=== PATIENT | female | born 1980 | race Caucasian/White ===

== ENCOUNTER 2017-11-08 09:54 | Emergency (ER) | payer OTHER ==
[~2017-11-08] VITALS: Ht 170.2 cm; Wt 136.1 kg
[2017-11-08 10:20] LABS: ABSOLUTE NEUTROPHILS 4.6 thou/uL (1.4-8.2); BASOPHILS 0.7 % (0.0-2.0); HEMATOCRIT 42.1 % (37.0-47.0); HEMOGLOBIN 14.1 gm/dL (12.0-15.0); LYMPHOCYTES 32.9 % (24.0-44.0); MCH 26.3 pg (26.0-34.0); MCHC 33.4 g/dL (28.0-37.0); MCV 78.7 fL (80.0-100.0); MONOCYTES 7.9 % (1.0-8.0); PLATELET COUNT 266 thou/uL (150-400); POLYS 57.5 % (36.0-66.0); RBC 5.35 mil/uL (4.20-5.00); RDW 14.6 % (10.5-14.5)
[2017-11-08 10:23] LABS: ANION GAP 9 mmol/L (7-16); BUN 13 mg/dL (7-18); CALCIUM 8.6 mg/dL (8.5-10.1); CHLORIDE 105 mmol/L (98-107); CO2 25 mmol/L (21-32); CREATININE 0.9 mg/dL (0.6-1.0); GLUCOSE 143 mg/dL (74-106); POTASSIUM 3.9 mmol/L (3.5-5.1); SODIUM 139 mmol/L (136-145)
[2017-11-08 10:29] LABS: ALBUMIN 3.5 g/dL (3.4-5.0); DIRECT BILIRUBIN < 0.1 mg/dL (<0.1-0.3); LIPASE 103 U/L (73-393); SGOT 22 U/L (15-37); SGPT 35 U/L (30-65); TOTAL BILIRUBIN 0.3 mg/dL (<0.1-1.0); TOTAL PROTEIN 7.1 g/dL (6.4-8.2)
[2017-11-08 10:55] LABS: URINE BILIRUBIN NEGATIVE (Negative); URINE BLOOD 3+ (Negative); URINE CLARITY CLOUDY; URINE COLOR YELLOW; URINE GLUCOSE-RANDOM* NEGATIVE (Negative); URINE KETONES NEGATIVE (Negative); URINE NITRITE-REFLEX NEGATIVE (Negative); URINE PROTEIN (DIPSTICK) NEGATIVE (Negative); URINE UROBILINOGEN 0.2 E.U./dl (0.2-1.0)
[2017-11-08 10:56] LABS: URINE LEUKOCYTES-REFLEX TRACE (Negative)
[2017-11-08 11:04] LABS: CASTS None Seen /LPF (None Seen); CRYSTALS None Seen /LPF (None Seen); SQUAMOUS 0-3 Few /LPF (0-3); URINE RBC >20 Many /HPF (0-2); URINE WBC-REFLEX 6-15 Few /HPF (0-5)
[2017-11-08] MEDS ORDERED: TORADOL 10 MG T10 MG PO (14:10)
[2017-11-08] MEDS ORDERED: ULTRAM 50MG TAB50 MG PO (14:10)
[2017-11-08] MEDS ORDERED: KEFLEX500 M1 PO (14:10)
[2017-11-08] MEDS ORDERED: ZOFRAN ODT4 MG PO (14:10)
[2017-11-08 14:41] VITALS: BP 135/90
== END 2017-11-08 14:43 | disposition home or self-care (01) ==
LOC: ER 09:54
PROVIDERS: Emergency Medicine
DX: N20.0 Calculus of kidney (principal); Z88.2 Allergy status to sulfonamides; Z88.8 Allergy status to other drugs, medicaments and biological substances

== ENCOUNTER → 2018-12-30 | Outpatient (CLI) | payer OTHER ==
[~2018-12-30] MED LIST: KEFLEX500 M1 PO; TORADOL 10 MG T10 MG PO; ULTRAM 50MG TAB50 MG PO; ZOFRAN ODT4 MG PO
== END ==
LOC: CAT 10:20
DX: K80.20 Calculus of gallbladder without cholecystitis without obstruction (principal); K76.0 Fatty (change of) liver, not elsewhere classified

== ENCOUNTER → 2020-04-24 | Outpatient (CLI) | payer OTHER ==
[2020-04-24 11:18] LABS: ABSOLUTE NEUTROPHILS 5.2 thou/uL (1.4-8.2); BASOPHILS 0.5 % (0.0-2.0); EOSINOPHILS 1.1 % (0.0-3.0); HEMATOCRIT 39.6 % (37.0-47.0); HEMOGLOBIN 13.3 gm/dL (12.0-15.0); LYMPHOCYTES 17.5 % (24.0-44.0); MCH 26.2 pg (26.0-34.0); MCHC 33.7 g/dL (28.0-37.0); MCV 77.8 fL (80.0-100.0); MONOCYTES 6.1 % (1.0-8.0); PLATELET COUNT 296 thou/uL (150-400); POLYS 74.8 % (36.0-66.0); RBC 5.09 mil/uL (4.20-5.00); RDW 15.2 % (10.5-14.5); WBC 6.9 thou/uL (4.0-11.0)
[2020-04-24 11:20] LABS: URINE BILIRUBIN NEGATIVE (Negative); URINE BLOOD 3+ (Negative); URINE CLARITY CLEAR; URINE COLOR YELLOW; URINE GLUCOSE-RANDOM* NEGATIVE (Negative); URINE KETONES NEGATIVE (Negative); URINE LEUKOCYTES NEGATIVE (Negative); URINE NITRITE NEGATIVE (Negative); URINE PROTEIN (DIPSTICK) NEGATIVE (Negative); URINE SPECIFIC GRAVITY >= 1.030 (1.005-1.035); URINE UROBILINOGEN 0.2 E.U./dl (0.2-1.0)
[2020-04-24 11:34] LABS: ALBUMIN 3.5 g/dL (3.4-5.0); ANION GAP 8 mmol/L (7-16); BUN 11 mg/dL (7-18); CALCIUM 8.5 mg/dL (8.5-10.1); CHLORIDE 101 mmol/L (98-107); CHOLESTEROL 124 mg/dL (<200); CO2 26 mmol/L (21-32); CREATININE 0.8 mg/dL (0.6-1.0); GLUCOSE 105 mg/dL (74-106); HDL CHOLESTEROL 49 mg/dL (>40); LDL CHOLESTEROL 59 mg/dL (<100); POTASSIUM 3.9 mmol/L (3.5-5.1); SGOT 12 U/L (15-37); SGPT 22 U/L (30-65); SODIUM 135 mmol/L (136-145); TC:HDL 2.5 Ratio (Not establshd); TOTAL BILIRUBIN 0.4 mg/dL (0.2-1.0); TRIGLYCERIDE 83 mg/dL (<150); VLDL 17 mg/dL (<40)
[2020-04-24 12:09] LABS: BACTERIA 1-9 Few /HPF (None Seen); CASTS None Seen /LPF (None Seen); CRYSTALS None Seen /LPF (None Seen); SQUAMOUS 0-3 Few /LPF (0-3); URINE WBC None Seen /HPF (0-5)
== END ==
LOC: LAB 10:25
PROVIDERS: ATTEND Nurse Practitioner
DX: N60.01 Solitary cyst of right breast (principal); Z00.00 Encounter for general adult medical examination without abnormal findings; N63.10 Unspecified lump in the right breast, unspecified quadrant

== ENCOUNTER → 2020-09-06 | Outpatient (CLI) | payer OTHER | LOC: MRI 09-05 11:57 | PROVIDERS: ATTEND Family Medicine | DX: M51.27 Other intervertebral disc displacement, lumbosacral region (principal); M54.30 Sciatica, unspecified side ==

== ENCOUNTER → 2020-10-09 | Outpatient (CLI) | payer OTHER ==
[~2020-10-09] VITALS: Ht 320 cm; Wt 114.8 kg
[~2020-10-09] MED LIST changes: +NEURONTIN300 MG PO; +PHENTERMINE H37.5 MG PO
[2020-10-09 14:43] VITALS: BP 124/80
--- NOTE | 2020-10-09 15:05 | NUR ---
Pain Clinic Assessment: 1. History of Osteoarthritis: Not Applicable History of Rheumatoid Arthritis: 2. Height: 5 ft. 66 in. 320.0 cm. Weight: 253.0 lb. oz. 114.760 kg. Patient's BMI: 11.2 3. Vital Signs: BP: 124/80 Pulse: 82 Resp: 16 Temp: 02 Sat: 100 ECG Mon: 4. Pain Intensity: 6 5. Fall Risk: Dizziness: Y Needs help standing or walking: N Fallen in the last 3 months: N Fall risk comments: 6. Patient on Blood Thinner: 7. History of Hypertension: N 8. Opioid Therapy greater than 6 weeks: N Opiate Contract Signed: 9. Risk Assessment Tool Provided: 10. Functional Assessment Tool: 2 11. Recreational Drug Use: Never Drug Type: Tobacco Use: Never Smoker Tobacco Type: Amount or Packs/day: How Many Years: Alcohol Use: No Frequency: Quant:
--- NOTE | 2020-10-10 12:59 | HPC ---
[facility] [place] [address] PAIN MANAGEMENT CONSULTATION Name: ZANDER VEGA Room #: REG [facility] Mart.#: [id number] Admission: 10/09/20 Attend Phys: James Denise DO Discharge: Date of : 82 Report #: [id number] THIS REPORT FOR: cc: James Kearney James A. DO Johnson, James E. DO ~ DATE OF SERVICE: 10/09/2020 REFERRING PHYSICIAN: Dr. James Kearney CHIEF COMPLAINT: Low back pain, right lower extremity pain with paresthesias. HISTORY OF PRESENT ILLNESS: As you know, the patient is a 40-year-old female who reports acute onset of low back pain, right lower extremity pain that began on 08/24/2020. The patient states symptoms began with no noted injury or trauma. She has trialed vawf-hks-hidgesc treatment including nonsteroidal anti-inflammatories along with rest and relaxation. She has had a history of chronic back pain in the past with intermittent episodes, but nothing that lasted as long as this condition. She sought further evaluation through her primary care physician. They trialed conservative treatment with medication management, but symptoms did not improve. She was subsequently then referred to undergo MRI of the lumbar spine due to ongoing pain and radiation down the right leg. It was found the patient had changes at the L5-S1 level with nerve root impingement of the S1 and the patient was subsequently referred to our clinic to discuss interventional treatments. The patient indicates today pain is continuous, steady and constant, describes the pain as burning, shooting, cramping, pulling and throbbing along with intermittent numbness and tingling. She places current pain score 4/10, daily average at 7/10, worst pain has been is 10/10. The patient states that lying down and sitting exacerbate symptoms standing. Pain medications and stretching tends to improve pain. She has been referred to our service to discuss treatment options for suspected lumbar radiculopathy. PAST MEDICAL HISTORY: 1. Exogenous obesity. 2. Juvenile rheumatoid arthritis. PAST SURGICAL HISTORY: 1. section x 2. 2. Tubal ligation. 3. Tubal reanastomosis. SOCIAL HISTORY: The patient denies tobacco, alcohol, IV or illicit drug use. She has been out of work force for about 2 months due to ongoing pain issues, unresolved with conservative treatment. She typically works at [employer] in the [facility] [address] [place] [address] PAIN MANAGEMENT CONSULTATION Name: ZANDER VEGA Room #: REG [facility] [id number] Admission: 10/09/20 Attend Phys: James Denise DO Discharge: Date of : 82 Report #: [id number] shipping area. She is not receiving workmen's compensation nor is she trying to obtain discrete benefits. She is not in litigation in regards to pain. She is unaccompanied at today's visit. REVIEW OF SYSTEMS: Positive for weight gain, decrease in appetite, fatigue and weakness, nocturia, numbness and tingling sensations involving the right lower extremity, insomnia, morbid obesity. All other review of systems negative per 12-point review of systems other than those listed in history of present illness. Pain impact score 51/70 indicating severe interference of daily activities secondary to pain. ALLERGIES: SULFA, MORPHINE, NUBAIN. CURRENT MEDICATIONS: Phentermine 37 mg once a day. IMAGING: MRI lumbar spine obtained on 09/06/2020 shows L1-L2, L2-L3, L3-L4, and L4-L5 essentially unremarkable. There is no neural foraminal stenosis, no central canal stenosis. L5-S1, mild generalized disk bulge with superimposed right paracentral disk protrusion abutting the right S1 nerve root within the central canal contributing to mild right sided central canal stenosis. There is mild facet arthropathy on the right, negative left. No significant neural foraminal stenosis. PHYSICAL EXAMINATION: VITAL SIGNS: Blood pressure 124/80, pulse 82, respiratory rate 16 and unlabored. The patient is 100% on room air. Height 5 feet 6 inches tall, weight 253 pounds, BMI calculated 42.7. GENERAL: Well-developed, well-nourished, well-hydrated, class III, morbidly obese 40-year-old female appearing her stated age, placing current pain score 6/10. HEENT: Normocephalic, atraumatic. Pupils equal, round and reactive to light. Extraocular muscles are intact. Sclerae nonicteric without injection. NEUROLOGIC: Speech is fluent. The patient is wearing a mask in compliance with COVID-19 regulations. LUNGS: Clear, no wheeze, rhonchi or rales. CARDIOVASCULAR: Regular. No appreciable gallop, no rub. ABDOMEN: Soft, obese, normal active bowel sounds spells. EXTREMITIES: Show no clubbing, no cyanosis. No appreciable edema. MUSCULOSKELETAL: Lower extremity strength is equal and symmetrical 5/5. Slight giveaway strength noted with hip flexion, knee extension on the right when compared to left due to pain. Seated straight leg raising positive right. Supine straight leg raising positive right. Ladi's test is negative. Modified Gaenslen's positive for axial low back pain. Ankle clonus negative. Babinski is negative. Gait is mildly antalgic favoring right lower extremity over left. [address] [address] PAIN MANAGEMENT CONSULTATION Name: ZANDER VEGA Room #: REG [facility]#: [id number] Admission: 10/09/20 Attend Phys: James Denise DO Discharge: Date of : 82 Report #: [id number] Deep tendon reflexes equal and symmetrical by patellar and Achilles. ASSESSMENT: 1. Symptomatic lumbar radiculopathy. 2. Displacement of lumbar intervertebral disk with radiculopathy. 3. Mild facet arthropathy of the lumbar spine. PLAN: 1. Based on today's physical exam and history the patient has provided, the description the patient uses in regards to pain as well as location of symptoms and descriptors the likely source of the patient's pain is a lumbar radiculopathy. The patient and I discussed at length today the findings of her MRI and how that correlates to her current symptoms. It would appear her symptoms are related to the S1 nerve root abutment on the right due to the paracentral disk protrusion at L5-S1. After discussing the findings of her MRI and how they correlate to her current symptoms, we then discussed the treatment options we have available. Following was discussed with the patient today. We have discussed with the patient that physical therapy, stretching exercises, core strengthening and a concerted effort at weight loss would be an excellent conservative treatment approach to addressing her ongoing pain. We discussed suggestions in medication management with neuropathic pain medications along consistent nonsteroidal anti-inflammatory. We also discussed with the patient epidural injections under fluoroscopic guidance for which the patient was referred to our clinic. We also discussed surgical options with the patient, though given the findings on the MRI, I do not feel the patient at this point would be requiring such a degree that aggressive treatment. After reviewing the risks and benefits of all proposed treatment options, the patient chose to move forward with a lumbar epidural injection under fluoroscopic guidance. 2. The patient was advised due to third democrat payer restrictions, authorization would have to be obtained before the patient could undergo a lumbar epidural injection. Authorization could take anywhere from 4-7 working days. We will begin this process immediately, contact the patient once this authorization has been completed. having her return to undergo the first in a series of lumbar epidural injections. 3. The patient will be started on gabapentin for neuropathic pain control. We will start her at 300 mg p.o. at bedtime for 3 nights and if no improvement in symptoms, no side effects, then increase to 600 mg p.o. at bedtime for 3 nights again if no improvement in symptoms, no side effects of sleepiness, disorientation, confusion, mental slowing or dysphoric effects, then increase to 900 mg p.o. at bedtime. Gait, the patient is continuing to experience pain then begin escalating doses in the morning, starting with 1 tab p.o. at bedtime, continuing every 3 days to escalate to 900 b.i.d. The patient was given a prescription of the gabapentin #120 tablets to begin the titration. We will discuss efficacy at followup visit. 4. We will see the patient back in followup visit once we have achieved [address] [address] PAIN MANAGEMENT CONSULTATION Name: ZANDER VEGA Room #: EMILY Collado#: [id number] Admission: 10/09/20 Attend Phys: James Denise DO Discharge: Date of : 82 Report #: [id number] authorization for the patient to undergo a lumbar epidural injection under fluoroscopic guidance. We are hopeful we can obtain this authorization quickly having the patient. The patient returned to undergo the injection and return to her work activities. 5. The patient has requested whether or not limitations at work would be necessary. I have advised the patient to follow up with her PCP in regards to this issue. I do feel that limitations of lifting with forward flexion would be appropriate given the findings of her MRI. The lifting restrictions should be no greater than 25 pounds though a heavy weight can be done if appropriate teaching has been given to the patient in regards to appropriate lifting and lumbar stabilization belt is provided. She can follow through with her human resources individual at her place appointment to receive this education and bracing. We wish to thank Dr. Kearney for the opportunity to see the patient in consultation. We will keep you apprised of response to treatment as we address lumbar radiculopathy. Again, we wish to thank you for the opportunity to see the patient in consultation. <ELECTRONICALLY SIGNED> By: James Denise DO 10/10/20 1259 [id number] 1149 James Denise DO /nt
== END ==
LOC: PAIN 10-02 06:55
PROVIDERS: ATTEND Anesthesiology Pain Medicine
DX: M51.36 Other intervertebral disc degeneration, lumbar region (principal); M79.604 Pain in right leg; R20.2 Paresthesia of skin

== ENCOUNTER → 2020-10-19 | Outpatient (CLI) | payer OTHER ==
[~2020-10-19] MED LIST changes: +CIPRO500 M1 PO; +FLAGYL500 M1 PO
== END ==
LOC: LAB 11:25
PROVIDERS: ATTEND Family Medicine
DX: R50.9 Fever, unspecified (principal); R05 Cough; R51.9 Headache, unspecified; R19.7 Diarrhea, unspecified; Z20.822 Contact with and (suspected) exposure to COVID-19

== ENCOUNTER 2020-10-22 12:43 | Emergency (ER) | payer OTHER ==
[~2020-10-22] VITALS: Ht 167.6 cm; Wt 64.0 kg
[~2020-10-22 12:43] MED LIST changes: -CIPRO500 M1 PO; -FLAGYL500 M1 PO
[2020-10-22 15:13] LABS: URINE BLOOD 2+ (Negative); URINE CLARITY CLEAR; URINE COLOR YELLOW; URINE GLUCOSE-RANDOM* NEGATIVE (Negative); URINE KETONES 1+ (Negative); URINE NITRITE-REFLEX NEGATIVE (Negative); URINE PROTEIN (DIPSTICK) NEGATIVE (Negative); URINE SPECIFIC GRAVITY 1.025 (1.005-1.035); URINE UROBILINOGEN 0.2 E.U./dl (0.2-1.0)
[2020-10-22 15:15] LABS: ABSOLUTE NEUTROPHILS 5.5 thou/uL (1.4-8.2); BASOPHILS 0.3 % (0.0-2.0); EOSINOPHILS 0.7 % (0.0-3.0); HEMATOCRIT 39.5 % (37.0-47.0); HEMOGLOBIN 13.2 gm/dL (12.0-15.0); LYMPHOCYTES 14.6 % (24.0-44.0); MCH 25.4 pg (26.0-34.0); MCHC 33.4 g/dL (28.0-37.0); MCV 76.1 fL (80.0-100.0); PLATELET COUNT 281 thou/uL (150-400); POLYS 71.4 % (36.0-66.0); RBC 5.19 mil/uL (4.20-5.00); RDW 15.5 % (10.5-14.5); WBC 7.7 thou/uL (4.0-11.0)
[2020-10-22 15:20] LABS: ICTOTEST (BILI CONFIRMATORY) Negative (Negative); URINE BILIRUBIN NEGATIVE (Negative); URINE LEUKOCYTES-REFLEX 1+ (Negative)
[2020-10-22 15:23] LABS: BACTERIA-REFLEX >30 Many /HPF (None Seen); CASTS None Seen /LPF (None Seen); CRYSTALS None Seen /LPF (None Seen); SQUAMOUS 4-10 Moderate /LPF (0-3); URINE RBC 3-10 Few /HPF (0-2); URINE WBC-REFLEX 6-15 Few /HPF (0-5)
[2020-10-22 15:35] LABS: CALCIUM 9.6 mg/dL (8.5-10.1); POTASSIUM 3.5 mmol/L (3.5-5.1)
[2020-10-22 15:41] LABS: ALBUMIN 3.4 g/dL (3.4-5.0); TOTAL BILIRUBIN 0.3 mg/dL (0.2-1.0); TOTAL PROTEIN 7.3 g/dL (6.4-8.2)
[2020-10-22] MEDS ORDERED: ULTRAM 50MG TAB50 MG PO (16:55)
[2020-10-22] MEDS ORDERED: FLAGYL500 M1 PO (16:55)
[2020-10-22] MEDS ORDERED: CIPRO500 M1 PO (16:55)
[2020-10-22 17:15] VITALS: BP 135/82
--- NOTE | 2020-10-23 07:35 | EKG ---
[place] [address] [address] [place] [address] ELECTROCARDIOGRAM REPORT Name: ZANDER VEGA [facility]: [facility]P [facility] [id number] Admission: 10/22/20 Attend Phys: Discharge: 10/22/20 Date of : 82 Report #: [id number] [facility] ED Test Date: 2020-10-22 Test Time: 14:25:55 Pat Name: ZANDER VEGA Department: Room: Gender: F [employer] Party: : 1980 Requested By: Nadiya Wilson Order Number: [id number] MD: Felice Talbert Measurements Intervals [place] Rate: 76 P: -8 WV: 158 QRS: 36 QRSD: 89 T: 35 QT: 367 QTc: 413 Interpretive Statements Sinus rhythm RSR' in V1 or V2, probably normal variant No previous ECG available for comparison Electronically Signed On 10-23-2020 7:35:21 PERSONAL ATTENDANT by Felice Talbert [email or web address] <ELECTRONICALLY SIGNED> By: Felcie Talbert MD, [facility] 10/23/20 0735 1425 1425 Felice Talbert MD, FACC /EPI
== END 2020-10-22 17:40 | disposition home or self-care (01) ==
LOC: ER 12:43
PROVIDERS: Physician Assistant
DX: K52.9 Noninfective gastroenteritis and colitis, unspecified (principal); R06.02 Shortness of breath; R07.89 Other chest pain; R42 Dizziness and giddiness; R50.9 Fever, unspecified; Z20.822 Contact with and (suspected) exposure to COVID-19; Z98.890 Other specified postprocedural states; Z98.51 Tubal ligation status; Z79.899 Other long term (current) drug therapy; Z88.8 Allergy status to other drugs, medicaments and biological substances; Z88.2 Allergy status to sulfonamides; Z88.5 Allergy status to narcotic agent; Z88.6 Allergy status to analgesic agent

== ENCOUNTER 2020-12-28 17:30 | Emergency (ER) | payer OTHER ==
[~2020-12-28] VITALS: Ht 160 cm; Wt 72.6 kg
[~2020-12-28 17:30] MED LIST changes: +CIPRO500 M1 PO; +FLAGYL500 M1 PO
[2020-12-28 18:08] LABS: URINE BILIRUBIN NEGATIVE (Negative); URINE BLOOD TRACE (Negative); URINE CLARITY CLEAR; URINE COLOR YELLOW; URINE GLUCOSE-RANDOM* NEGATIVE (Negative); URINE KETONES NEGATIVE (Negative); URINE LEUKOCYTES-REFLEX NEGATIVE (Negative); URINE NITRITE-REFLEX NEGATIVE (Negative); URINE PROTEIN (DIPSTICK) NEGATIVE (Negative); URINE SPECIFIC GRAVITY >= 1.030 (1.005-1.035); URINE UROBILINOGEN 0.2 E.U./dl (0.2-1.0)
[2020-12-28 20:19] VITALS: BP 121/69
== END 2020-12-28 20:20 | disposition home or self-care (01) ==
LOC: ER 17:30
PROVIDERS: Nurse Practitioner Family
DX: O20.0 Threatened abortion (principal); Z79.2 Long term (current) use of antibiotics; Z79.899 Other long term (current) drug therapy; Z88.2 Allergy status to sulfonamides; Z88.5 Allergy status to narcotic agent; Z88.8 Allergy status to other drugs, medicaments and biological substances; Z3A.01 Less than 8 weeks gestation of pregnancy

== ENCOUNTER 2021-02-09 20:54 | Emergency (ER) | payer OTHER ==
[~2021-02-09] VITALS: Ht 167.6 cm; Wt 99.8 kg
[2021-02-09 22:07] LABS: ABSOLUTE NEUTROPHILS 8.4 thou/uL (1.4-8.2); BASOPHILS 0.5 % (0.0-2.0); EOSINOPHILS 0.7 % (0.0-3.0); HEMATOCRIT 36.4 % (37.0-47.0); HEMOGLOBIN 12.1 gm/dL (12.0-15.0); LYMPHOCYTES 11.9 % (24.0-44.0); MCH 24.8 pg (26.0-34.0); MCHC 33.3 g/dL (28.0-37.0); MCV 74.5 fL (80.0-100.0); MONOCYTES 6.7 % (1.0-8.0); PLATELET COUNT 281 thou/uL (150-400); POLYS 80.2 % (36.0-66.0); RBC 4.89 mil/uL (4.20-5.00); RDW 16.2 % (10.5-14.5); WBC 10.5 thou/uL (4.0-11.0)
[2021-02-09 22:21] LABS: CALCIUM 8.3 mg/dL (8.5-10.1); CREATININE 0.9 mg/dL (0.6-1.0); POTASSIUM 3.3 mmol/L (3.5-5.1)
[2021-02-09 23:28] VITALS: BP 147/86
--- NOTE | 2021-02-10 09:06 | EKG ---
[facility] [place] [address] [place] [address] ELECTROCARDIOGRAM REPORT Name: ZANDER VEGA Room #: DEP [facility]#: [id number] Admission: 02/09/21 Attend Phys: Discharge: 02/09/21 Date of : 82 Report #: [id number] [facility] ED Test Date: 2021-02-09 Test Time: 21:32:17 Pat Name: ZANDER VEGA Department: Room: Gender: F Cooker Tender: socorro : 1980 Requested By: Robert Amaro Order Number: [id number] MD: Felice Talbert Measurements Intervals [place] Rate: 88 P: 44 RI: 178 QRS: 37 QRSD: 114 T: 23 QT: 381 QTc: 461 Interpretive Statements Sinus rhythm Borderline intraventricular conduction delay RSR' in V1 or V2, right VCD or RVH Compared to ECG 10/22/2020 14:25:55 Right ventricular hypertrophy now present Electronically Signed On 02-10-2021 9:06:33 CDT by Felice Talbert [email or web address] <ELECTRONICALLY SIGNED> By: Felice Talbert MD, [facility] 02/10/21905 31 31 Felice Talbert MD, FAC /EPI
== END 2021-02-09 23:28 | disposition home or self-care (01) ==
LOC: ER 20:54
PROVIDERS: Emergency Medicine
DX: F41.0 Panic disorder [episodic paroxysmal anxiety] (principal); F12.90 Cannabis use, unspecified, uncomplicated; R10.30 Lower abdominal pain, unspecified; R20.0 Anesthesia of skin; Z98.890 Other specified postprocedural states; Z98.51 Tubal ligation status; Z79.899 Other long term (current) drug therapy; Z79.2 Long term (current) use of antibiotics; Z88.8 Allergy status to other drugs, medicaments and biological substances; Z88.2 Allergy status to sulfonamides; Z88.6 Allergy status to analgesic agent; Z88.5 Allergy status to narcotic agent

== ENCOUNTER 2021-05-25 10:33 | Emergency (ER) | payer OTHER ==
[~2021-05-25] VITALS: Ht 165.1 cm; Wt 60.8 kg
[2021-05-25 10:35] VITALS: BP 146/87
[2021-05-25] MEDS ORDERED: SUPER THERAVIT1 EACH PO (10:42)
[2021-05-25] MEDS ORDERED: NAPROSYN500 M1 PO (12:27)
== END 2021-05-25 13:00 | disposition home or self-care (01) ==
LOC: ER 10:33
DX: S93.401A Sprain of unspecified ligament of right ankle, initial encounter (principal); Z98.890 Other specified postprocedural states; Z79.891 Long term (current) use of opiate analgesic; Z79.899 Other long term (current) drug therapy; Z88.6 Allergy status to analgesic agent; Z88.5 Allergy status to narcotic agent; Z88.2 Allergy status to sulfonamides; Z91.09 Other allergy status, other than to drugs and biological substances; W19.XXXA Unspecified fall, initial encounter; Y93.89 Activity, other specified; Y92.89 Other specified places as the place of occurrence of the external cause; Y99.8 Other external cause status